=== PATIENT | male | born 2005 | race Caucasian/White ===

== ENCOUNTER 2023-04-23 20:02 | Emergency (ER) | payer BC ==
[2023-04-23] MEDS ORDERED: Mag-Al Plus 1200 MG/1200 MG/120 MG/30 ML UDCUP ONE (21:07)
== END 2023-04-23 22:45 | disposition home or self-care (01) ==
LOC: CSHERS 20:02
DX: R07.89 Other chest pain (principal); R19.7 Diarrhea, unspecified
CPT/HCPCS: 93005; 99284

== ENCOUNTER 2023-06-04 19:53 | Emergency (ER) | payer BC | END 2023-06-04 21:40 | disposition home or self-care (01) | LOC: CSHERS 19:53 | DX: R07.9 Chest pain, unspecified (principal) | CPT/HCPCS: 71045; 93005 ==